=== PATIENT | female | born 1935 | race Caucasian/White ===

== ENCOUNTER 2024-01-22 23:42 | Emergency (ER) | payer MEDICARE, SELFPAY ==
[2024-01-22 23:46] VITALS: BP 176/84; BMI 18.3
[2024-01-23] VITALS: BP 163/87
[2024-01-23 00:51] LABS: % Basophils 0.4 % (0-2); % Immature Granulocytes 0.1 % (0-0.5); % Lymphocytes 27.1 % (20.5-51.1); % Monocytes 8.1 % (1.7-9.3); % Neutrophils 61.3 % (42.2-75.2); Absolute Eosinophils 0.2 10^3/uL (0-0.7); Absolute Lymphocytes 1.9 10^3/uL (1.2-3.4); Absolute Monocytes 0.6 10^3/uL (0.1-0.6); Absolute Neutrophils 4.3 10^3/uL (1.4-6.5); Hematocrit 37.3 % (37.0-47.0); Hemoglobin 12.3 g/dL (12.0-16.0); Mean Corpuscular Hgb 29.5 pg (27.0-31.0); Mean Corpuscular Volume 89.4 fL (81.0-99.0); Mean Platelet Volume 8.6 fL (7.4-10.4); Nucleated Red Blood Cells % 0 %; Platelet Count 245 10^3/uL (130-400); Red Blood Cell Count 4.17 10^6/uL (4.20-5.40); Red Cell Dist. Width 15.7 % (11.5-14.5); White Blood Cell Count 7.1 10^3/uL (4.8-10.8)
[2024-01-23 01:00] VITALS: BP 166/75
[2024-01-23 01:12] LABS: Blood Urea Nitrogen 19 mg/dl (7-17); Carbon Dioxide 29 mmol/L (22-30); Chloride 103 mmol/L (98-107); Estimated Creatinine Clearance 50 ml/min; Glucose 108 mg/dl (70-99); Potassium 4.7 mmol/L (3.5-5.1); Sodium 143 mmol/L (135-145); eGFR > 60.00
[2024-01-23 02:00] VITALS: BP 188/75
--- NOTE | 2024-01-23 02:00 | EDRN ---
Patient aware she is being discharged, NOE Vargas spoke with patient about results and plan
--- NOTE | 2024-01-23 02:23 | ED.GENMED ---
History of Present Illness
General
Chief Complaint: Medication Reaction
Source: patient
Exam Limitations: none
Time Seen by Provider: 01/23/24 00:13
Nursing documentation reviewed up to this point in time: agreed with
History of Present Illness
History of Present Illness:
Patient states she forgot to take her AM meds so she took them tonight with her PM meds. States a few hours later she noted bruising on her left forearm. She became concerned that bruising was due to taking all her meds together. Brought to ED
via EMS for eval
Past History
Past History
ED Past Medical History: Arrthythmia, HTN and Hypercholesterolemia
ED Past Surgical History: Cardiac (Pacemaker)
Social History
Tobacco: Non-smoker
Review of Systems
Review of Systems
Allergies reviewed?: Yes
All Other Systems: ROS reviewed and negative except as documented in HPI and ROS
Constitutional: Reports no symptoms
EENT: Reports no symptoms
Respiratory: Reports no symptoms
Cardiac: Reports no symptoms
ABD/GI: Reports no symptoms
Musculoskeletal: Reports no symptoms
Skin: Reports other (2 bruises left forearm)
Neurological: Reports no symptoms
Psychiatric: Reports no symptoms
Phy Exam
General Physical Exam
General Presentation: well appearing and no apparent distress
General age: appears stated age
General Skin: warm and dry
General Habitus: normal
General Mental: alert
Cardiovascular Exam
Cardiovascular Exam: regular rate/rhythm and no edema
Pulmonary Exam
Pulmonary Exam: lungs clear and no respiratory distress
Musculoskeletal Exam
Musculoskeletal Exam: full ROM and neuro vasc intact
Skin Exam
Skin Exam: normal color, warm/dry and other (2 bruises left forearm. Full nonpainful ROM)
Psychiatric Exam
Psychiatric Exam: normal mood/affect
Course
Orders/Labs/Results
Orders:
Orders
01/23/24 00:35
Electrocardiogram (*1) Urgent
Reason for Study: Fatigue / Weakness
EKG- Treatment ONCE
01/23/24 00:38
Basic Metabolic Panel Urgent
Complete Blood Count/With Diff Urgent
Abnormal Lab Results
01/23/24
00:38
RBC 4.17 L 10^6/uL
(4.20-5.40)
RDW 15.7 H %
(11.5-14.5)
BUN 19 H mg/dl
(7-17)
Glucose 108 H mg/dl
(70-99)
01/23/24 00:38
01/23/24 00:38
Vital Signs
Initial and Last Documented VS:
Initial Vital Signs
Temp Pulse Resp BP Pulse Ox
97.8 F 68 16 176/84 95
01/22/24 23:46 01/22/24 23:46 01/22/24 23:46 01/22/24 23:46 01/22/24 23:46
Last Documented Vital Signs
Temp Pulse Resp BP Pulse Ox
97.8 F 68 16 188/75 93
01/22/24 23:46 01/22/24 23:46 01/22/24 23:46 01/23/24 02:00 01/23/24 03:00
*Critical Care Note
Total Time (30-74mins, 75-104mins- exclusive of procedures): Not Applicable
Update Note
Update Note:
Labs EKG reviewed with patient. No concerning findings on exam. VSS. Discussed importance of taking meds scheduled and to never double up. She is discharged home and will follow up with PCP in AM
ED Attending Note
-
Portions of this chart may have been created with voice recognition software.� Occasional wrong word or��sound alike� substitutions may have occurred due to the inherent limitations of voice recognition software.
Discharge Plan
Departure
Patient Disposition: Home (Routine Discharge)
Date of Disposition: 01/23/24
Time of Disposition: 01:20
Patient with high blood pressure during this ER visit?: No
Condition: Good
Covid-19: Not Applicable
Discharge Problem:
Ecchymosis of forearm
Instructions: Taking care of bruises
Prescriptions:
No Action
bupropion HCl 150 MG tablet sustained-release 12 hr
150 mg PO BID
ibuprofen 800 MG tablet
800 mg PO Q8HPRN PRN (Reason: Pain)
amlodipine 2.5 MG tablet
2.5 mg PO DAILY
aspirin 81 MG tablet,delayed release (DR/EC)
81 mg PO DAILY
valsartan [Diovan] 320 MG tablet
320 mg PO DAILY
nebivolol [Bystolic] 5 MG tablet
5 mg PO DAILY
prasugrel [Effient] 10 MG tablet
10 mg PO DAILY
Lactobac 2-Bifido 1-S. therm [High Potency Probiotic] 1 CAP capsule
1 cap PO DAILY Qty: 30 0RF
clindamycin HCl 300 MG capsule
300 mg PO Q6H Qty: 28 0RF
prednisone 50 MG tablet
50 mg PO DAILY Qty: 3 0RF
Referrals:
PRIVATE,PHYSICIAN [Family Provider] -
Activity Restrictions/Additional Instructions:
Follow up with your healthcare provider. Do not double up on your medications. ONLY TAKE YOUR MEDICATIONS AT THE TIME PRESCRIBED.
Interventions
Interventions:
*Risk Screen - Suicide Last Done: 01/22/24 23:46
*General Assessment Last Done: 01/22/24 23:46
*Neglect/Abuse Screening Last Done: 01/22/24 23:46
ED- Fall Risk Assessment Last Done: 01/23/24 01:15
*ED COVID-19 Vaccine History Last Done: 01/22/24 23:46
*Nursing Disposition Last Done: 01/23/24 03:47
ED-Skin Assessment Last Done: 01/23/24 01:15
ED- Pulmonary Assessment Last Done: 01/23/24 01:15
ED-EENT Assessment Last Done: 01/23/24 03:47
Discharge Date and Time
Discharge Date/Time: 01/23/24 03:50
Print Language: [place]
--- NOTE | 2024-01-23 03:10 | EDRN ---
Patient provided with a blanket, waiting on transport at this time
== END 2024-01-23 03:50 | disposition home or self-care (01) ==
LOC: EMR 23:42
PROVIDERS: Nurse Practitioner; EMERGENCY PHYSICIAN Emergency Medicine
DX: S50.12XA Contusion of left forearm, initial encounter (principal); X58.XXXA Exposure to other specified factors, initial encounter; E78.00 Pure hypercholesterolemia, unspecified; I10 Essential (primary) hypertension; Z95.0 Presence of cardiac pacemaker; Z79.899 Other long term (current) drug therapy
CPT/HCPCS: 99284; 80048; 85025; 93005